=== PATIENT | female | born 1980 | race Caucasian/White ===

== ENCOUNTER 2017-12-28 01:09 | Emergency (ER) | payer OTHER ==
[~2017-12-28] VITALS: Ht 170.2 cm; Wt 90.7 kg
[~2017-12-28 01:09] MED LIST: CLONAZEPAM 0.50.5 M1 PO; FLEXERIL PO; NORCO 10-325 T1 EACH PO; PAXIL40 MG PO; TRAMADOL 50 MG50 MG PO
[2017-12-28] MEDS ORDERED: VYVANSE40 MG (01:20)
[2017-12-28] MEDS ORDERED: CYMBALTA60 MG (01:21)
[2017-12-28] MEDS ORDERED: BACTROBAN CREAM30 G1 (01:22)
[2017-12-28] MEDS ORDERED: RISPERDAL 3 MG T3 MG (01:22)
[2017-12-28] MEDS ORDERED: WELLBUTRIN SR100 MG (01:22)
[2017-12-28] MEDS ORDERED: LIDOCAINE VISC100 ML (01:22)
[2017-12-28] MEDS ORDERED: LYRICA 50 MG50 MG (01:23)
[2017-12-28] MEDS ORDERED: ONDANSETRON HCL4 M2 (01:23)
[2017-12-28] MEDS ORDERED: VITAMIN D3 COM1 EACH (01:24)
[2017-12-28] MEDS ORDERED: UNICOMPLEX M TA1 TA1 (01:24)
[2017-12-28] MEDS ORDERED: IBUPROFEN 800800 M1 (01:24)
[2017-12-28] MEDS ORDERED: ATORVASTATIN CA40 MG (01:24)
[2017-12-28] MEDS ORDERED: MEDROLDOSEPACK PO (01:25)
[2017-12-28] MEDS ORDERED: ULTRAM 50MG TAB50 MG PO (01:25)
[2017-12-28] MEDS ORDERED: AMOXICILLIN 50500 MG PO (01:25)
[2017-12-28 01:52] VITALS: BP 154/107
== END 2017-12-28 01:52 | disposition home or self-care (01) ==
LOC: M.ERS 01:09
DX: K13.79 Other lesions of oral mucosa (principal); F17.210 Nicotine dependence, cigarettes, uncomplicated; Z88.2 Allergy status to sulfonamides; Z88.1 Allergy status to other antibiotic agents; Z88.8 Allergy status to other drugs, medicaments and biological substances